=== PATIENT | male | born 1965 | race Two or more races ===

== ENCOUNTER 2017-11-26 03:11 | Inpatient (IN) | payer SELFPAY ==
[~2017-11-26] VITALS: Ht 170.2 cm; Wt 80.4 kg
[2017-11-26] MEDS ORDERED: FAMOTIDINE 20MG/2ML VIAL IV STA (03:49)
[2017-11-26] MEDS ORDERED: DICYCLOMINE 10 MG/5 ML ORAL SYR PO STA (03:49)
[2017-11-26] MEDS ORDERED: MAGNESIUM/ALUMINUM HYDROXIDE/SIMETHICONE 30ML UDC PO STA (03:49)
[2017-11-26] MEDS ORDERED: ASPIRIN 81MG TABLET PO ONE (04:00)
[2017-11-26 04:15] LABS: BASOPHILS % 0.6 % (0.0-2.0); HEMOGLOBIN. 14.3 g/dL (14.0-18.0); LYMPHOCYTES % 30.9 % (20.0-50.0); MEAN CORPUSCULAR HEMOGLOBIN 33.8 pg (28.0-32.0); MEAN CORPUSCULAR VOLUME 96.9 fL (80.0-94.0); MEAN PLATELET VOLUME 7.2 fl (7.4-10.4); MONOCYTES % 10.1 % (2.0-8.0); NEUTROPHILS % 56.4 % (40.0-76.0); PLATELET 271 x1000/uL (130-400); RED BLOOD CELL COUNT 4.23 mill/uL (4.7-6.1); RED CELL DISTRIBUTION WIDTH 13.5 % (11.6-14.6)
[2017-11-26 04:23] LABS: CHLORIDE 109 mEq/L (98-107)
[2017-11-26 04:26] LABS: D-DIMER < 0.19 mg/L FEU (<0.50); PROTHROMBIN TIME 10.1 sec (9.4-11.6)
[2017-11-26 04:27] LABS: ETHANOL BLOOD < 10 mg/dL
[2017-11-26 05:45] LABS: *AMPHETAMINES SCREEN URINE NEGATIVE (NEGATIVE); *BARBITURATES SCREEN URINE NEGATIVE (NEGATIVE); *BENZODIAZEPINES SCREEN URINE NEGATIVE (NEGATIVE)
[2017-11-26 05:46] LABS: *COCAINE SCREEN URINE NEGATIVE (NEGATIVE); CANNABINOID URINE SCREEN NEGATIVE (NEGATIVE); METHADONE URINE SCREEN NEGATIVE (NEGATIVE); OPIATES URINE SCREEN NEGATIVE (NEGATIVE); PHENCYCLIDINE URINE SCREEN NEGATIVE (NEGATIVE)
[2017-11-26 08:00] VITALS: BP 127/87
[2017-11-26 08:30] VITALS: BP 127/87
[2017-11-26] MEDS ORDERED: IPRATROPIUM/ALBUTEROL 0.5-3(2.5)MG/3ML NEB INH PRN (08:30)
[2017-11-26] MEDS ORDERED: KETOROLAC 15MG/ML VIAL IV PRN (08:30)
[2017-11-26] MEDS ORDERED: ACETAMINOPHEN 325MG TABLET PO PRN (08:30)
[2017-11-26] MEDS ORDERED: DIPHENHYDRAMINE 50MG/ML VIAL IV PRN (08:30)
[2017-11-26] MEDS ORDERED: LORAZEPAM 0.5MG TABLET PO PRN (08:30)
[2017-11-26] MEDS ORDERED: CLONIDINE 0.1MG TABLET PO PRN (08:30)
[2017-11-26] MEDS ORDERED: GUAIFENESIN 200MG/10ML SUGAR FREE UDC PO PRN (08:30)
[2017-11-26] MEDS ORDERED: DOCUSATE SODIUM 100MG CAPSULE PO PRN (08:30)
[2017-11-26] MEDS ORDERED: NA PHOS,M-B/NA PHOS,DI-BA ENEMA 118ML PR PRN (08:30)
[2017-11-26] MEDS ORDERED: ONDANSETRON HCL 4MG/2ML VIAL IV PRN (08:30)
[2017-11-26] MEDS ORDERED: NITROGLYCERIN 0.4MG TABLET SL SL PRN (08:30)
[2017-11-26] MEDS ORDERED: MAGNESIUM/ALUMINUM HYDROXIDE/SIMETHICONE 30ML UDC PO PRN (08:30)
[2017-11-26] MEDS ORDERED: ONDANSETRON 4MG ODT PO PRN (09:00)
[2017-11-26] MEDS: ASPIRIN 325MG EC TABLET PO SCH (09:25)
[2017-11-26] MEDS: FAMOTIDINE 20MG TABLET PO SCH ×2 (09:25→20:19)
[2017-11-26] MEDS: ENOXAPARIN 40MG/0.4ML SYR SUBCUT SCH (09:26)
[2017-11-26] MEDS: SUCRALFATE 1 G/10 ML UDC PO SCH ×3 (11:57→20:19)
[2017-11-26 12:00] VITALS: BP 119/83
[2017-11-26 16:00] VITALS: BP 128/83
[2017-11-26 16:31] LABS: CREATINE KINASE 153 IU/L (39-308)
[2017-11-26 16:32] LABS: CREATINE KINASE MB FRACTION 0.6 ng/mL (0.5-3.6)
[2017-11-26 20:00] VITALS: BP 114/77
[2017-11-26] MEDS ORDERED: ZOLPIDEM TARTRATE 5MG TABLET PO PRN (21:00)
[2017-11-26] MEDS ORDERED: ATORVASTATIN CALCIUM 10MG TABLET PO SCH (21:00)
[2017-11-27] VITALS: BP 124/78
[2017-11-27 01:53] LABS: CREATINE KINASE 134 IU/L (39-308)
[2017-11-27 01:54] LABS: CREATINE KINASE MB FRACTION 0.5 ng/mL (0.5-3.6)
[2017-11-27 04:00] VITALS: BP 113/73
[2017-11-27] MEDS: SUCRALFATE 1 G/10 ML UDC PO SCH ×2 (05:52→11:22)
[2017-11-27 08:00] VITALS: BP 103/75
[2017-11-27] MEDS: ENOXAPARIN 40MG/0.4ML SYR SUBCUT SCH (10:10)
[2017-11-27] MEDS: ASPIRIN 325MG EC TABLET PO SCH (10:10)
[2017-11-27 10:52] VITALS: BP 103/75
[2017-11-27] MEDS: FAMOTIDINE 20MG TABLET PO SCH (11:22)
[2017-11-27 12:00] VITALS: BP 112/73
== END 2017-11-27 12:25 | disposition home or self-care (01) | DRG 243 ==
LOC: ER 03:11 → 5WST 05:04 → ENRESERV 07:01
PROVIDERS: ADMIT Internal Medicine; ATTEND Internal Medicine
DX: K21.9 Gastro-esophageal reflux disease without esophagitis (principal); E83.51 Hypocalcemia; E78.00 Pure hypercholesterolemia, unspecified; E83.52 Hypercalcemia; F12.10 Cannabis abuse, uncomplicated; F17.210 Nicotine dependence, cigarettes, uncomplicated; Z71.6 Tobacco abuse counseling
CPT/HCPCS: 36415; 71045; 80053; 80061; 80305; 82550; 82553; 83036; 83690; 83880; 84484; 85025; 85379; 85610; 93005; 93970; G0482; J1650; J1885; J3490